=== PATIENT | female | born 1935 | race Caucasian/White ===

== ENCOUNTER 2023-09-01 14:41 | Emergency (ER) | payer MEDICARE, OTHER, SELFPAY ==
[2023-09-01 14:44] VITALS: BP 146/89
[2023-09-01 15:05] VITALS: BMI 27.2
--- NOTE | 2023-09-01 15:18 | ED.MUSCINJ ---
HPI-Injury
General
Chief Complaint: Fall
Source: patient and family
Exam Limitations: none
Time Seen by Provider: 09/01/23 15:09
Nursing documentation reviewed up to this point in time: agreed with
Travel History
Have you had any contact with someone who has COVID-19?: No
Do you have any symptoms of coronavirus? Fever > 100 degrees, chills, cough, shortness of breath, sore throat, loss of taste or smell, muscle aches, or headache?: No
History of Present Illness-Injury
Is this injury a work related problem?: No
Is pt an associate of [facility]?: No
Initial Injury comments:
Patient tripped and fell. Hit chin on chair. No LOC. Has puncture wound to chin, bruising to right ant chest. Taken to by daughter, sent her to ED for head CT. She is awake and alert, has no complaints. Injury occurred yesterday.
Past History
Past History
ED Past Medical History: None
Social History
Personal:
Review of Systems
Review of Systems
Allergies reviewed?: Yes
All Other Systems: ROS reviewed and negative except as documented in HPI and ROS
Constitutional: Reports no symptoms
EENT: Reports no symptoms
Respiratory: Reports no symptoms
Cardiac: Reports no symptoms
ABD/GI: Reports no symptoms
: Reports no symptoms
Musculoskeletal: Reports other (bruising right ant. chest wall)
Skin: Reports other (puncture wound to chin)
Neurological: Reports no symptoms
Psychiatric: Reports no symptoms
Musculoskeletal Injury Exam
Musculoskeletal Injury Exam
Right Anterior Chest:
Pain with Movement?: None
Soft tissue swelling?: None
External deformity and angulation?: None
Joint effusion?: None
Contusion?: Moderate
Hematoma-local bleeding into tissue?: Moderate
Strain- Sprain- Tear (Connective tissue injury)?: None
Crepitus with movement?: No
Joint instability?: No
Malalignment/deformity?: No
Range of motion: Full
Distal skin color and temperature: normal-warm & good color
Capillary Refill: normal
Normal distal neurovascular exam?: Yes
Skin Exam
other
Other:
5mm puncture to right chin. NO active bleeding. FUll ROM to jaw.
Phy Exam
General Physical Exam
General Presentation: well appearing and no apparent distress
General age: appears stated age
General Skin: warm and dry
General Habitus: normal
General Mental: alert
Eye Exam
Eye Exam: PERRL and EOMI
Gastrointestinal Exam
Gastrointestinal Exam: non tender and soft
Neurological Exam
Neurological Exam: alert, oriented x3, CN II-XII intact, no motor deficits, no sensory deficits, speech normal and normal gait
Uriel Coma Scale
Eye Opening: Spontaneous
Verbal Response: Oriented
Motor Response: Obeys Commands
GCS Total Score: 15
Musculoskeletal Exam
Musculoskeletal Exam: full ROM and neuro vasc intact
Skin Exam
Skin Exam: normal color and warm/dry
Psychiatric Exam
Psychiatric Exam: normal mood/affect
Injury Course
Orders/Labs/Results
Orders:
Orders
09/01/23 15:16
CT Head W/o Iv Contrast Urgent
Comment:
Reason For Exam: fall
Tetanus/Diphth/Acelpertussis [Adacel] 0.5 ml IM .ONCE ONE
Ribs, Right 3 View W/PA Chest [CR Ribs-right 3 Vw W/pa Chest*] Urgent
Comment:
Reason For Exam: fall
*Radiology
Radiology exam reviewed: radiology read reviewed
*Pulse Oximetry
Patient hypoxic: no
*Critical Care Note
Total Time (30-74mins, 75-104mins- exclusive of procedures): Not Applicable
ED Attending Note
-
Portions of this chart may have been created with voice recognition software.� Occasional wrong word or��sound alike� substitutions may have occurred due to the inherent limitations of voice recognition software.
Discharge Plan
Departure
Patient Disposition: Home (Routine Discharge)
Date of Disposition: 09/01/23
Time of Disposition: 16:46
Patient with high blood pressure during this ER visit?: No
Condition: Good
Covid-19: Not Applicable
Discharge Problem:
Head injury
Instructions: Wound Care (DC), Head Injury in Adults (DC), Contusion (DC)
Prescriptions:
No Action
No Current Medications
0
Referrals:
Hermes Adams MD [Family Provider] - Follow up in 2-3 days
Interventions
Interventions:
*Risk Screen - Suicide Last Done: 09/01/23 15:05
*General Assessment Last Done: 09/01/23 15:05
*Neglect/Abuse Screening Last Done: 09/01/23 15:05
ED- Fall Risk Assessment Last Done: 09/01/23 15:05
*ED COVID-19 Vaccine History Last Done: 09/01/23 15:05
*Nursing Disposition Last Done: 09/01/23 17:12
ED-Musculoskeletal Assessment Last Done: 09/01/23 15:05
ED- Neurological Assessment Last Done: 09/01/23 15:05
ED-Skin Assessment Last Done: 09/01/23 15:05
Discharge Date and Time
Discharge Date/Time: 09/01/23 17:13
Print Language: [place]
[2023-09-01] MEDS: ADACEL 0.5 ML IM (15:50)
--- NOTE | 2023-09-01 16:21 | EDRN ---
this RN stated to this RN that she needed to use the bathroom, this RN provided the pt with a w/c and took the pt to the hallway bathroom, the pt was able to go to the bathroom on her own, this RN waited for the pt outside of the hallway bathroom,
the pt was brought back to stretcher and was able to get out of w/c and onto stretcher on her own without any issues, no s/s of distress, will continue to monitor the pt closely
[2023-09-01 17:12] VITALS: BP 135/76
== END 2023-09-01 17:13 | disposition home or self-care (01) ==
LOC: EMR 14:41
PROVIDERS: EMERGENCY PHYSICIAN Emergency Medicine; FAMILY PHYSICIAN Family Medicine
DX: S01.83XA Puncture wound without foreign body of other part of head, initial encounter (principal); W01.190A Fall on same level from slipping, tripping and stumbling with subsequent striking against furniture, initial encounter; Z23 Encounter for immunization
CPT/HCPCS: 99284; 90471; 70450; 71101; 90715